=== PATIENT | female | born 1990 | race Caucasian/White ===

== ENCOUNTER 2019-01-10 13:24 | Emergency (ER) | payer SELFPAY ==
[2019-01-10] MEDS ORDERED: 0.9 % SODIUM CHLORIDE 1,000 ML BAG IV ONE (13:56)
--- NOTE | 2019-01-10 14:01 | Emergency Department Record ---
History of Present Illness - General Chief Complaint: Abdominal Pain Stated Complaint: UPPER ABDOMINAL PAIN Time Seen by Provider: 01/10/19 13:55 Source: Patient Mode of Arrival: Ambulatory - History of Present Illness Initial Comments: The patient has had upper abdominal pain through to her back since 01-08-19. Prior to that she had some blood in her loose stools which has now stopped. Her severity was 8/10 then and is now 6/10. She has no nausea vomiting fevers or chills. She drinks at least one or more caffeinated pop daily. MD Complaint: Abdominal pain Onset/Timin -: Days(s) Location: Epigastric Radiation: L flank, R flank Severity scale (1-10): 6 Quality: Sharp Improves With: Nothing Worsens With: Nothing - Related Data LMP (females 10-50): other Previous Rx's Medication Instructions Recorded Hydrocodone/Acetaminophen [[place] 1 each PO QID PRN #10 tablet 01/10/19 10-325 Tablet] Allergies Allergy/AdvReac Type Severity Reaction Status Date / Time nitrofurantoin Allergy Severe SWELLING Unverified 01/10/19 11:21 [From Macrobid] OF THE FACE nitrofurantoin Allergy Severe SWELLING Unverified 01/10/19 11:21 macrocrystalline OF THE FACE [From Macrobid] Travel Screening - Travel/Exposure Within Last 30 Days Have you traveled within the last 30 days?: No - Travel/Exposure Within Last Year Have you traveled outside the [place] in the last year?: No - Additonal Travel Details Have you been exposed to anyone with a communicable illness?: No - Travel Symptoms Symptom Screening: Diarrhea Review of Systems Reviewed: No additional complaints except as noted below Constitutional: Reports: As per HPI. Denies: Chills, Fever, Malaise, Night sweats, Weakness, Weight change Eyes: Reports: As per HPI. Denies: Eye discharge, Eye pain, Photophobia, Vision change ENT: Reports: As per HPI. Denies: Congestion, Dental pain, Ear pain, Epistaxis, Hearing loss, Throat pain Respiratory: Reports: As per HPI. Denies: Cough, Dyspnea, Hemoptysis, Stridor, Wheezes Cardiovascular: Reports: As per HPI. Denies: Arrhythmia, Chest pain, Dyspnea on exertion, Edema, Murmurs, Orthopnea, Palpitations, Paroxysmal nocturnal dyspnea, Rheumatic Fever, Syncope Endocrine: Reports: As per HPI. Denies: Fatigue, Heat or cold intolerance, Polydipsia, Polyuria Gastrointestinal: Reports: As per HPI. Denies: Abdominal pain, Constipation, Diarrhea, Hematemesis, Hematochezia, Melena, Nausea, Vomiting Genitourinary: Reports: As per HPI. Denies: Abnormal menses, Discharge, Dyspareunia, Dysuria, Frequency, Hematuria, Incontinence, Retention, Urgency Musculoskeletal: Reports: As per HPI. Denies: Arthralgia, Back pain, Gout, Joint swelling, Myalgia, Neck pain Skin: Reports: As per HPI. Denies: Bruising, Change in color, Change in hair/nails, Lesions, Pruritus, Rash Neurological: Reports: As per HPI. Denies: Abnormal gait, Confusion, Headache, Numbness, Paresthesias, Seizure, Tingling, Tremors, Vertigo, Weakness Psychiatric: Reports: As per HPI. Denies: Anxiety, Auditory hallucinations, Dep ression, Homicidal thoughts, Suicidal thoughts, Visual hallucinations Hematological/Lymphatic: Reports: As per HPI. Denies: Anemia, Blood Clots, Easy bleeding, Easy bruising, Swollen glands Past Medical History - SOCIAL HISTORY Smoking Status: Never smoker Alcohol Use: Rare Drug Use: None - RESPIRATORY Hx Respiratory Disorders: No - CARDIOVASCULAR Hx Cardio Disorders: No - NEURO Hx Neuro Disorders: No - GI Hx GI Disorders: Yes Hx GI Bleed: Yes Hx Reflux: Yes Comment:: ulcerative colitis when child - Hx Genitourinary Disorders: No Comment:: ,kidney infection when preganant - ENDOCRINE Hx Endocrine Disorders: Yes Hx Thyroid Disease: Yes (hypo) Comment:: used to have. no longer - MUSCULOSKELETAL Hx Musculoskeletal Disorders: No - PSYCH Hx Psych Problems: Yes Hx Anxiety: Yes Hx Depression: Yes - HEMATOLOGY/ONCOLOGY Hx Hematology/Oncology Disorders: No Family Medical History Any Significant Family History?: No Hx Heart Disease: Father Hx HTN: Mother Physical Exam - General General Appearance: Alert, Oriented x3, Cooperative, Mild distress - Head Head exam: Normal inspection - Eye Eye exam: Normal appearance, PERRL, EOMI. negative: Conjunctival injection, Nystagmus Pupils: Normal accommodation - ENT ENT exam: Normal exam, Mucous membranes moist, Normal external ear exam, Normal orophraynx, TM's normal bilaterally Ear exam: Normal external inspection. negative: External canal tenderness Nasal Exam: Normal inspection. negative: Discharge, Sinus tenderness Mouth exam: Normal external inspection, Tongue normal Teeth exam: Normal inspection. negative: Dental caries Throat exam: Normal inspection. negative: Tonsillar erythema, Tonsillar exudate - Neck Neck exam: Normal inspection, Full ROM. negative: Lymphadenopathy, Tenderness - Respiratory Respiratory exam: Normal lung sounds bilaterally. negative: Respiratory distress - Cardiovascular Cardiovascular Exam: Regular rate, Normal rhythm, Normal heart sounds - GI/Abdominal GI/Abdominal exam: Soft, Normal bowel sounds, Tenderness (epigastric tenderness on palpation; ). negative: Distended, Guarding, Hernia, Rebound, Rigid - Rectal Rectal exam: Deferred - exam: Deferred - Extremities Extremities exam: Normal inspection, Full ROM, Normal capillary refill. negative: Calf tenderness, Pedal edema, Tenderness - Back Back exam: Reports: Normal inspection, Full ROM. Denies: CVA tenderness (R), CVA tenderness (L), Muscle spasm, Rash noted, Tenderness - Neurological Neurological exam: Alert, CN II-XII intact, Normal gait, Oriented X3, Reflexes normal. negative: Motor sensory deficit - Psychiatric Psychiatric exam: Normal affect, Normal mood - Skin Skin exam: Dry, Intact, Normal color, Warm Course Vital Signs 01/10/19 13:26 Temperature 98.2 F Pulse Rate 83 Respiratory 18 Rate Blood Pressure 115/78 Pulse Ox 98 - Reevaluation(s) Reevaluation #1: 01/10/19 16:25 Patient is feeling better after morphine. He pain level is 2/10. She is comfortable going home on pain pills and follow up with PCP and [facility]. 01/10/19 16:36 Medical Decision Making - Management Options MDM Management: Additional Work-up Planned (e.g. ADM/Transfer/OP Study) ([facility] referral) - Data Complexity MDM Data: Labs Ordered and/or Reviewed, X-Ray Ordered and/or Reviewed (CT Abd/Pelvis: Mild pancreatitis, no other acute abnormality per radiologist.) - Lab Data Result diagrams: 01/10/19 14:00 01/10/19 14:00 Disposition Disposition: Discharge Clinical Impression: Pancreatitis Qualifiers: Chronicity: acute Pancreatitis type: unspecified pancreatitis type Acute taylor creatitis complication: no infection or necrosis Qualified Code(s): K85.90 - Acute pancreatitis without necrosis or infection, unspecified Disposition: Home, Self-Care Condition: (1) Good Instructions: Pancreatitis (ED) Additional Instructions: Clear liquids and push fluids for 24 hours. Advance diet to full liquids low fat day 2 if improving. Discontinue pops and no alcohol. Take norco as directed as needed for pain. May cause drowsiness. [facility] referral as instructed; they will call you. Prescriptions: Hydrocodone/Acetaminophen [[place] 10-325 Tablet] 1 each PO QID PRN #10 tablet PRN Reason: Pain - Mod To Severe (5-10) Referrals: CRISTOPHER ANDRE [DOCTOR OF OSTEOPATH] - [facility] [Provider Group] Forms: Patient Portal Access Quality - Quality Measures Quality Measures: N/A - Blood Pressure Screening Does Patient Have Any of the Following: No Blood Pressure Classification: Normal BP Reading Systolic Measurement: 115 Diastolic Measurement: 78 Screening for High Blood Pressure: < Normal BP, F/U Not Required > [G8783]
[2019-01-10 14:06] LABS: BASO % 0.6 % (0-6); EOS % 7.5 % (0-6); GRAN % 68.5 % (47-80); HEMATOCRIT 42.4 % (35.0-47.0); HEMOGLOBIN 13.2 gm/dl (11.6-16.0); LYMPH % 16.5 % (16-45); MEAN CELL VOLUME 90.8 fl (81-97); MEAN CORPUSCULAR HEMOGLOBIN 28.3 pg (27-33); MEAN CORPUSCULAR HGB CONC 31.1 g/dl (32-36); MONO % 6.9 % (0-9); PLATELET COUNT 482 K/uL (130-400); RED BLOOD COUNT 4.67 M/uL (3.80-5.40); RED CELL DISTRIBUTION WIDTH 12.9 % (11.5-14.5); WHITE BLOOD COUNT W/O DIFF 9.5 K/uL (4.2-12.2)
[2019-01-10 14:17] LABS: BLOOD UREA NITROGEN 9 mg/dL (6-20)
[2019-01-10 14:18] LABS: CREATININE 0.5 mg/dL (0.5-0.9); EST GLOMERULAR FILTRATION RATE > 60 mL/min
[2019-01-10 14:20] LABS: AMYLASE 176 U/L (28-100); GLUCOSE,RANDOM 78 mg/dL (74-109)
[2019-01-10 14:27] LABS: LIPASE 519 U/L (13-60)
[2019-01-10] MEDS ORDERED: ONDANSETRON HCL IV 4 MG/2 ML VIAL IVP ONE (15:04)
[2019-01-10] MEDS ORDERED: MORPHINE SULFATE 5 MG/ML VIAL IVP ONE (15:04)
--- NOTE | 2019-01-11 14:04 | CT SCAN REPORT ---
EXAM: CT OF THE ABDOMEN AND PELVIS WITH CONTRAST HISTORY: UPPER ABDOMINAL PAIN AND CONSTIPATION. TECHNIQUE: Standard CT imaging of the abdomen and pelvis was obtained following intravenous administration of contrast. Comparison: None. FINDINGS: The lung bases are clear. The liver and gallbladder are unremarkable. There is mild fat stranding around the tail of the pancreas suggesting mild acute pancreatitis. The parenchyma of the pancreas is normally enhancing. No discrete fluid collections. The spleen and adrenal glands appear normal. The kidneys appear normal. No small bowel dilatation. There is a large amount of stool in the ascending and transverse colon. No pericolonic inflammation. The appendix is normal. The bladder is unremarkable. No pelvic masses are identified. No adenopathy or free fluid. The bones are unremarkable. IMPRESSION: FINDINGS SUGGESTING MILD ACUTE PANCREATITIS. JOB NUMBER: [id number] [facility]
== END 2019-01-10 16:47 | disposition home or self-care (01) ==
LOC: ER 13:24
DX: K85.90 Acute pancreatitis without necrosis or infection, unspecified (principal)
CPT/HCPCS: 74177; 80048; 82150; 83690; 85025; 96374; 99284; J2405; J7030